=== PATIENT | female | born 1985 | race American Indian/Alaskan Native ===

== ENCOUNTER 2019-08-13 09:24 | Emergency (ER) | payer MEDICAID ==
[2019-08-13] MEDS ORDERED: ONDANSETRON 4 MG/2 ML INJ IV ONE (09:55)
[2019-08-13] MEDS ORDERED: ONDANSETRON 4 MG/2 ML INJ ONE (10:02)
[2019-08-13 10:54] LABS: Basophils % (Auto) 0.7 % (0.0-1.8); Eosinophils # (Auto) 0.2 K/mm3 (0.0-0.4); Eosinophils % (Auto) 3.3 % (0.0-4.3); Hematocrit 33.4 % (30.3-42.9); Hemoglobin 10.5 gm/dl (10.1-14.3); Lymphocytes # (Auto) 1.3 K/mm3 (1.2-5.4); Lymphocytes % (Auto) 17.5 % (13.4-35.0); Mean Corpuscular HGB Conc 31 % (30-34); Mean Corpuscular Volume 73 fl (79-97); Monocytes # (Auto) 0.4 K/mm3 (0.0-0.8); Monocytes % (Auto) 4.9 % (0.0-7.3); Platelet Count 313 K/mm3 (140-440); Red Blood Count 4.58 M/mm3 (3.65-5.03)
[2019-08-13 10:58] LABS: Alanine Aminotransferase 10 units/L (7-56); Albumin 4.7 g/dL (3.9-5); BUN/Creatinine Ratio 19; Blood Urea Nitrogen 13 mg/dL (7-17); Calcium 9.4 mg/dL (8.4-10.2); Hemolysis Index 2
[2019-08-13 11:04] LABS: Partial Thromboplastin Time 30.8 Sec. (24.2-36.6)
--- NOTE | 2019-08-13 13:15 | Emergency Department Report ---
ED Syncope HPI - General Chief Complaint: Syncope Stated Complaint: NAUSEA Time Seen by Provider: 08/13/19 10:09 - History of Present Illness Initial Comments: 33-year-old female presents to vomiting one followed by dizziness syncopal. The sensation is unclear if she had loss practice states that don't remember what happened. Patient reports that her mother had called out for her she was on the floor. Patient reports she had an episode like this in June. Patient reports that she has a headache this morning after she has been evaluated by EMS. Patient reports he has a past medical history of SVT and has not been on her meds. Patient reports her last menstrual period was 05/29/2019. Patient reports she is 6 para 5 with one at 3 months. Patient reports her last baby she delivered with 8 years ago. Timing/Prior Episodes: remote history Precipitating Factors: Positive: blurred vision, diaphoresis, lightheadedness Context: standing Loss of Consciousness: brief (seconds) Current Symptoms: back to normal, headache - Related Data Allergies/Adverse Reactions: Allergies peanut Allergy (Verified 08/13/19 09:42) Unknown Penicillins Allergy (Verified 08/13/19 09:42) Unknown ED Review of Systems ROS: Stated complaint: NAUSEA Other details as noted in HPI Comment: All other systems reviewed and negative Neurological: headache ED Past Medical Hx - Past Medical History Previous Medical History?: Yes Additional medical history: SVT - Surgical History Past Surgical History?: Yes Additional Surgical History: x 5. bilateral axillary sweat glands removed. uterine polyps removed. tonsillectomy/adenoids removed - Social History Smoking Status: Never Smoker Substance Use Type: None ED Physical Exam - General Limitations: No Limitations General appearance: alert, in no apparent distress - Head Head exam: Present: atraumatic, normocephalic - Eye Eye exam: Present: normal appearance - ENT ENT exam: Present: mucous membranes moist - Neck Neck exam: Present: normal inspection - Respiratory Respiratory exam: Present: normal lung sounds bilaterally. Absent: respiratory distress - Cardiovascular Cardiovascular Exam: Present: regular rate, normal rhythm. Absent: systolic murmur, diastolic murmur, rubs, gallop - GI/Abdominal GI/Abdominal exam: Present: soft, normal bowel sounds - Extremities Exam Extremities exam: Present: normal inspection - Back Exam Back exam: Present: normal inspection - Neurological Exam Neurological exam: Present: alert, oriented X3 - Expanded Neurological Exam Expanded Cranial nerves: EOM's Intact: Normal, Gag Reflex: Normal, Tongue Deviation: Normal, Nystagmus: Normal, Facial Sensation: Normal, Facial Palsy with Forehead Movement: Normal, Facial Palsy without Forehead Movement: Normal Cerebellar function: Finger to Nose: Normal, Heel to Argueta: Normal, Romberg: Normal Upper motor neuron: Benny Neglect: Normal, Pronator Drift: Normal, Babinski Sign: Normal, Sensory Extinction: Normal Sensory exam: Upper Extremity Light Touch: Normal, Upper Extremity Pin Prick: Normal, Upper Extremity Temperature: Normal, UE 2 Point Discrimination: Normal, Lower Extremity Light Touch: Normal, Lower Extremity Pin Prick: Normal, Lower Extremity Temperature: Normal, LE 2 Point Discrimination: Normal Motor strength exam: RUE: 4, LUE: 4, RLE: 4, LLE: 4 Best Eye Response (Mary Jo): (4) open spontaneously Best Motor Response ([place]): (6) obeys commands Best Verbal Response (Mary Jo): (5) oriented [place] Total: 15 - Psychiatric Psychiatric exam: Present: normal affect, normal mood - Skin Skin exam: Present: warm, dry, intact, normal color. Absent: rash ED Course Vital Signs 08/13/19 08/13/19 08/13/19 09:37 10:00 11:00 Temperature 97.7 F Pulse Rate 58 L 70 61 Respiratory 12 11 L 13 Rate Blood Pressure 125/72 125/72 133/69 O2 Sat by Pulse 100 100 99 Oximetry ED Medical Decision Making - Lab Data Result diagrams: 08/13/19 10:05 08/13/19 10:05 Laboratory Tests 08/13/19 08/13/19 08/13/19 10:05 10:05 10:05 WBC 7.4 RBC 4.58 Hgb 10.5 Hct 33.4 MCV 73 L MCH 23 L MCHC 31 RDW 20.0 H Plt Count 313 Lymph % (Auto) 17.5 [place] % (Auto) 4.9 Eos % (Auto) 3.3 Baso % (Auto) 0.7 Lymph # 1.3 [place] # 0.4 Eos # 0.2 Baso # 0.0 Seg Neutrophils % 73.6 H Seg Neutrophils # 5.4 PT 13.1 INR 1.00 APTT 30.8 Sodium 139 Potassium 4.0 Chloride 100.8 Carbon Dioxide 24 Anion Gap 18 BUN 13 Creatinine 0.7 Estimated GFR > 60 BUN/Creatinine Ratio 19 Glucose 114 H Calcium 9.4 Total Bilirubin < 0.20 AST 18 ALT 10 Alkaline Phosphatase 69 Total Protein 8.1 Albumin 4.7 Albumin/Globulin Ratio 1.4 HCG, Quant 08/13/19 10:05 WBC RBC Hgb Hct MCV MCH MCHC RDW Plt Count Lymph % (Auto) [place] % (Auto) Eos % (Auto) Baso % (Auto) Lymph # [place] # Eos # Baso # Seg Neutrophils % Seg Neutrophils # PT INR APTT Sodium Potassium Chloride Carbon Dioxide Anion Gap BUN Creatinine Estimated GFR BUN/Creatinine Ratio Glucose Calcium Total Bilirubin AST ALT Alkaline Phosphatase Total Protein Albumin Albumin/Globulin Ratio HCG, Quant < 2 - EKG Data EKG shows normal: sinus rhythm Rate: bradycardia - Radiology Data Radiology results: report reviewed Patient: KERON CHRISTIAN MR#: [id number] : 1985 Acct:[id number] Age/Sex: 33 / F ADM Date: 08/13/19 Loc: ED Attending Dr: Ordering Physician: TOYIN GUEVARA MD Date of Service: 08/13/19 Procedure(s): CT head/brain wo con Accession Number(s): [id number] cc: TOYIN GUEVARA MD CT head/brain wo con INDICATION / CLINICAL INFORMATION: 33 years Female; ams. TECHNIQUE: Routine CT head without contrast. All CT scans at this location are performed using CT dose reduction for ALARA by means of automated exposure control. COMPARISON: None. FINDINGS: BRAIN / INTRACRANIAL CONTENTS: The brain demonstrate appropriate attenuation. The ventricular system is within normal limits in size and configuration. There is no CT evidence of acute intracranial hemorrhage or significant mass effect. ORBITS: No significant abnormality of visualized orbits. SINUSES / MASTOIDS: No significant abnormality the visualized paranasal sinuses or mastoid air cells. CRANIOCERVICAL JUNCTION: No significant abnormality. ADDITIONAL FINDINGS: None. IMPRESSION: 1. There is no CT evidence of acute intracranial process. Signer Name: Blaine Copeland MD Signed: 08/13/2019 2:17 PM Workstation Name: [id number] Transcribed By: MR Dictated By: Blaine Copeland MD Electronically Authenticated By: Blaine Copeland MD Signed Date/Time: 08/13/19 1417 DD/ 1413 TD/TT: - Medical Decision Making 33-year-old female presents to vomiting one followed by dizziness syncopal. The sensation is unclear if she had loss practice states that don't remember what happened. Patient reports that her mother had called out for her she was on the floor. Patient reports she had an episode like this in June. Patient reports that she has a headache this morning after she has been evaluated by EMS. Patient reports he has a past medical history of SVT and has not been on her meds. Patient reports her last menstrual period was 05/29/2019. Patient reports she is 6 para 5 with one at 3 months. Patient reports her last baby she delivered with 8 years ago. Critical care attestation.: If time is entered above; I have spent that time in minutes in the direct care of this critically ill patient, excluding procedure time. ED Disposition Clinical Impression: Nausea and vomiting, Dizziness, nonspecific, Marijuana user Disposition: DC-01 TO HOME OR SELFCARE Is pt being admited?: No Does the pt Need Aspirin: No Condition: Stable Instructions: Dizziness (ED), Near Syncope (ED) Additional Instructions: All labs are within normal limits. test is negative. CT neg. Referrals: PRIMARY CARE, [Primary Care Provider] - 3-5 Days [facility] [Outside] - 3-5 Days
[2019-08-13 13:22] LABS: Bilirubin,Urine NEG (Negative); Blood,Urine MOD (Negative); Color,Urine Yellow (Yellow); Mucus,Urine FEW /HPF; Protein,Urine <15 mg/dL mg/dL (Negative); Urobilinogen,Urine < 2.0 mg/dL (<2.0)
[2019-08-13 14:00] LABS: Amphetamine Screen,Urine PRESUMPTIVE NEGATIVE; Benzodiazepines Screen,Urine PRESUMPTIVE NEGATIVE; Cocaine Screen,Urine PRESUMPTIVE NEGATIVE; Methadone Screen,Urine PRESUMPTIVE NEGATIVE; Opiate Screen,Urine PRESUMPTIVE NEGATIVE
[2019-08-13 14:21] LABS: Cannabinoid Screen,Urine PRESUMPTIVE POSITIVE
--- NOTE | 2019-08-13 14:21 | Cat Scan Report ---
CT head/brain wo con INDICATION / CLINICAL INFORMATION: 33 years Female; ams. TECHNIQUE: Routine CT head without contrast. All CT scans at this location are performed using CT dos e reduction for ALARA by means of automated exposure control. COMPARISON: None. FINDINGS: BRAIN / INTRACRANIAL CONTENTS: The brain demonstrate appropriate attenuation. The ventricular system is within normal limits in size and configuration. There is no CT evidence of acute intracranial hemo rrhage or significant mass effect. ORBITS: No significant abnormality of visualized orbits. SINUSES / MASTOIDS: No significant abnormality the visualized paranasal sinuses or mastoid air cells. CRANIOCERVICAL JUNCTION: No significant abnormality. ADDITIONAL FINDINGS: None. IMPRESSION: 1. There is no CT evidence of acute intracranial process. Signer Name: Blaine Copeland MD Signed: 08/13/2019 2:17 PM Workstation Name: [id number]
[2019-08-13 15:08] VITALS: BP 108/60
== END 2019-08-13 15:14 | disposition home or self-care (01) ==
LOC: ED 09:24
DX: R11.2 Nausea with vomiting, unspecified (principal); R42 Dizziness and giddiness; F12.10 Cannabis abuse, uncomplicated; A88.0 Enteroviral exanthematous fever [Boston exanthem]; Z98.890 Other specified postprocedural states; Z91.010 Allergy to peanuts
CPT/HCPCS: 36415; 70450; 80053; 80307; 81001; 84702; 85025; 85610; 85730; 93005; 93010; 96374; 99284; J2405